=== PATIENT | female | born 1975 | race Caucasian/White ===

== ENCOUNTER 2017-11-20 08:23 | Emergency (ER) | payer SELFPAY ==
[2017-11-20 08:31] VITALS: BP 128/72
[2017-11-20] MEDS ORDERED: Acetaminophen TAB* 325 MG PO ONE (08:42)
--- NOTE | 2017-11-20 09:10 | UC ---
Karin Vilchis Rebecca, scribed for Nitza Gil MD on 11/20/17 at 0842 . Respiratory Complaint HPI - HPI Summary HPI Summary: Pt is a 42 y/o F who presents to [facility] c/o sore throat and nasal congestion for 3 days. 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 Throat pain is currently moderate, ranked 7/10 and characterized as feeling "raw." Sx aggravated by swallowing, alleviated by nothing, unchanged by OTC cold medication. Additionally c/o bilateral ear pain and R ear hearing loss. Denies fever, chills, myalgias. She has been having difficulty swallowing secondary to pain. 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 Father had a Dx of flu 3 days ago and she has spent significant time with him recently. Negative PMHx asthma, COPD and lung disease. - History of Current Complaint Chief Complaint: UCRespiratory Stated Complaint: CONGESTED,SORE THROAT Time Seen by Provider: 11/20/17 08:36 Hx Obtained From: Patient Hx Last Menstrual Period: 01/28/16 Onset/Duration: Lasting Days, Still Present Severity Currently: Severe Pain Intensity: 7 Pain Scale Used: 0-10 Numeric Aggravating Factors: Other - Swallowing Alleviating Factors: Nothing Associated Signs And Symptoms: Negative: Fever, Chills - Allergies/Home Medications Allergies/Adverse Reactions: Allergies Allergy/AdvReac Type Severity Reaction Status Date / Time niacin Allergy Hives Verified 11/20/17 08:32 PMH/Surg Hx/FS Hx/Imm Hx - Additional Past Medical History Additional PMH: PMHx: HTN NEGATIVE PMHx: Asthma, COPD, lung disease Previously Healthy: Yes - Surgical History Surgical History: Yes Surgery Procedure, Year, and Place: 1990 FOREHEAD, CYST EXCISED [facility] [place] MOLE REMOVED FROM LEFT BREAST [facility] [place]. 1993 BREAST REDUCTION [facility] [place]. 01/2012 RIGHT KNEE SCOPE [facility] [place] - Family History Known Family History: Positive: Hypertension, Diabetes Negative: Cardiac Disease - Social History Occupation: Employed Full-time Lives: With Family Alcohol Use: None Substance Use Type: None Smoking Status (MU): Never Smoked Tobacco - Immunization History Most Recent Influenza Vaccination: 08/2012 Most Recent Tetanus Shot: within 10 years Most Recent Pneumonia Vaccination: NONE Review of Systems Constitutional: Fatigue Skin: Negative Eyes: Negative ENT: Sore Throat, Ear Ache - Bilateral, Sinus Congestion, Other - R ear hearing loss Respiratory: Negative Cardiovascular: Negative Gastrointestinal: Negative Genitourinary: Negative Motor: Negative Neurovascular: Negative Musculoskeletal: Negative Neurological: Negative Psychological: Negative All Other Systems Reviewed And Are Negative: Yes - Comments Additional Review of Systems Comments: NEGATIVE: Fever, chills, myalgias Physical Exam Triage Information Reviewed: Yes Appearance: Well-Appearing, No Pain Distress, Well-Nourished Vital Signs: Initial Vital Signs Temp 98.4 F 11/20/17 08:26 Pulse 87 11/20/17 08:26 Resp 18 11/20/17 08:26 BP 128/72 11/20/17 08:26 Pulse Ox 98 11/20/17 08:26 Vital Signs Reviewed: Yes Eye Exam: Normal Eyes: Positive: Conjunctiva Clear ENT: Positive: Pharynx normal, Nasal congestion, TMs normal, Uvula midline Neck exam: Normal Neck: Positive: Supple, Nontender, No Lymphadenopathy Respiratory Exam: Normal Respiratory: Positive: Chest non-tender, Lungs clear, Normal breath sounds, No respiratory distress, No accessory muscle use Cardiovascular Exam: Normal Cardiovascular: Positive: RRR, No Murmur, Pulses Normal Abdominal Exam: Normal Abdomen Description: Positive: Nontender, No Organomegaly, Soft Bowel Sounds: Positive: Present Musculoskeletal Exam: Normal Neurological Exam: Normal Neurological: Positive: Alert Psychological Exam: Normal Skin Exam: Normal UC Diagnostic Evaluation - Laboratory O2 Sat by Pulse Oximetry: 98 Re-Evaluation - Re-Evaluation First Eval Re-Evaluation Time: 09:03 Comment: Discussed test results with the patient. Respiratory Course/Dx - Course Course Of Treatment: Patients medication reviewed this visit. Pt with sore throat, congestion, cough and myalgias progressive x 2 days. pt with + influenza. hydrate. motrin/apap. tamiflu. work note (pt OPTICAL WORKER). secretion precaution - Differential Dx/Diagnosis Provider Diagnoses: influenza Discharge - Sign-Out/Discharge Documenting (check all that apply): Discharge - Discharge Plan Condition: Stable Disposition: HOME Prescriptions: Fluticasone NASAL SPRAY 50MCG* [Flonase NASAL SPRAY 50MCG*] 2 spray BOTH NARES DAILY #1 btl Oseltamivir SUSP 75 MG dose* [Tamiflu SUSP 75 MG dose*] 75 mg PO BID #10 oral.syrin Patient Education Materials: Influenza (ED) Forms: *Work Release Referrals: Nae Mehta MD [Primary Care Provider] - Additional Instructions: - Stay well hydrated. Drink plenty of non-alcoholic, non-caffinated beverages. - Alternate ibuprofen (Advil, Motrin) 600mg and Tylenol every 3 hours for pain or fever. Take with food. Do NOT take for more than 4-5 days. -cold foods (popsicle, jello, apple sauce) may be soothing to your throat - okay to gargle and spit with warm salt water, 2-3 times a day - These infections are spread by secretions - do NOT share eating or drinking utensils - clean items you share with other people such as cell phones, computer mouse, TV remote, computer tablets, etc. After you have taken Tamiflu for 3 days, change your toothbrush and your pillowcase. - use nasal spray as prescribed - get plenty of restful sleep - humidify the air in the room where you sleep - boil water, run a hot steam shower, vaporizer, cups of water by heat register - okay to take over the counter decongestant and cough medication - contact your doctor, return here, or go to the emergency department with questions or concerns - Billing Disposition and Condition Condition: STABLE Disposition: HOME The documentation as recorded by the Karin perera Rebecca accurately reflects the service I personally performed and the decisions made by , Nitza Gil MD.
== END 2017-11-20 09:10 | disposition home or self-care (01) ==
LOC: UCEAST 08:23
DX: J11.1 Influenza due to unidentified influenza virus with other respiratory manifestations (principal); Z88.8 Allergy status to other drugs, medicaments and biological substances
CPT/HCPCS: 87502; 87651; 99212; A9270-GY; G0463

== ENCOUNTER 2018-08-08 11:28 | Emergency (ER) | payer OTHER ==
[2018-08-08 11:56] VITALS: BP 147/82
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
== END 2018-08-08 12:50 | disposition home or self-care (01) ==
LOC: UCEAST 11:28
DX: M25.552 Pain in left hip (principal); V89.2XXA Person injured in unspecified motor-vehicle accident, traffic, initial encounter; Y92.488 Other paved roadways as the place of occurrence of the external cause; Z96.642 Presence of left artificial hip joint; I10 Essential (primary) hypertension
CPT/HCPCS: 99211; G0463

== ENCOUNTER 2018-12-09 05:46 | Emergency (ER) | payer OTHER ==
--- NOTE | 2018-12-09 06:17 | ED ---
Respiratory - HPI Summary HPI Summary: Patient is a 43-year-old female who presents emergency department for ongoing cough and sinus pressure 2 weeks. Past medical history of hypertension, obesity, hyperlipidemia. Patient denies history of asthma, COPD, smoking. Patient denies shortness of breath but notices chest discomfort with deep inhalation and coughing only. Patient denies fever, chills, abdominal pain, vomiting, diarrhea. Symptoms are mild in severity. No current modifying factors. 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 1991 MOLE REMOVED FROM LEFT BREAST [facility] [place]. 1993 BREAST REDUCTION [facility] [place]. 01/2012 RIGHT KNEE SCOPE [facility] [place]. bilateral hip replacement Hx Anesthesia Reactions: Yes - 1993 N/V Infectious Disease History: No Infectious Disease History: Denies: Traveled Outside the [place] in Last 30 Days - Family History Known Family History: Positive: Hypertension, Diabetes Negative: Cardiac Disease - Social History Occupation: Unemployed Alcohol Use: None Substance Use Type: Reports: None Smoking Status (MU): Never Smoked Tobacco Review of Systems Constitutional: Negative Negative: Fever, Chills Eyes: Negative Positive: Nasal Discharge Cardiovascular: Negative Positive: Cough. Negative: Shortness Of Breath Gastrointestinal: Negative Negative: Abdominal Pain, Vomiting, Diarrhea Genitourinary: Negative Neurological: Negative All Other Systems Reviewed And Are Negative: Yes Physical Exam Triage Information Reviewed: Yes Vital Signs On Initial Exam: Initial Vitals Temp Pulse Resp BP Pulse Ox 98.3 F 64 16 155/88 100 12/09/18 05:48 12/09/18 05:48 12/09/18 05:48 12/09/18 05:48 12/09/18 05:48 Vital Signs Reviewed: Yes Appearance: Positive: Well-Appearing - Pt. sitting on side of bed in NAD. Skin: Positive: Warm, Dry Head/Face: Positive: Normal Head/Face Inspection Eyes: Positive: Normal, EOMI, DIAN ENT: Positive: Pharynx normal, TMs normal, Other - Pain on palpation over maxillary sinuses. Neck: Positive: Supple, Nontender Respiratory/Lung Sounds: Positive: Other - Diminished breath sounds in bases.. Negative: Unable to speak in full sentences Cardiovascular: Positive: Normal, RRR Neurological: Positive: Normal, CN Intact II-III Psychiatric: Positive: Affect/Mood Appropriate Diagnostics - Vital Signs Vital Signs Temp Pulse Resp BP Pulse Ox 12/09/18 05:48 98.3 F 64 16 155/88 100 - Laboratory Lab Statement: Any lab studies that have been ordered have been reviewed, and results considered in the medical decision making process. Disposition - Course Course Of Treatment: Pt. presenting with ongoing cough and sinus pressure. She is afebrile. BP elevated. CXR negative for acute findings per my read. Given ongoing sinus pain will treat with augmentin and flonase. Advised close f.u with PCP. NSAIDS for pain as directed. Return to ER if sxs change or worsen. Work excuse given. Pt. understands and agrees with plan. - Differential Dx - Cardiopulmonary Differential Diagnoses - Cardiopulmonary: Asthma, Influenza, Pleurisy, Sinusitis - Diagnoses Provider Diagnoses: Bronchitis, Sinusitis Discharge - Sign-Out/Discharge Documenting (check all that apply): Patient Departure Patient Received Moderate/Deep Sedation with Procedure: No - Discharge Plan Condition: Good Disposition: HOME Prescriptions: Amoxicillin/Clavulanate TAB* [Augmentin TAB 875*] 875 mg PO BID #20 tab Fluticasone NASAL SPRAY 50MCG* [Flonase NASAL SPRAY 50MCG*] 2 spray BOTH NARES DAILY #1 btl Patient Education Materials: Sinusitis (ED) Forms: *Work Release Referrals: Nae Mehta MD [Primary Care Provider] - Additional Instructions: Schedule a follow up appointment with PCP Take medication as directed NSAIDs for pain as directed Increase fluids and rest Return to ER if symptoms change or worsen - Billing Disposition and Condition Condition: GOOD Disposition: Home
[2018-12-09 07:25] VITALS: BP 150/119
== END 2018-12-09 07:22 | disposition home or self-care (01) ==
LOC: ED 05:46
DX: J40 Bronchitis, not specified as acute or chronic (principal); J32.9 Chronic sinusitis, unspecified; I10 Essential (primary) hypertension; R73.03 Prediabetes; Z88.8 Allergy status to other drugs, medicaments and biological substances; Z79.84 Long term (current) use of oral hypoglycemic drugs
CPT/HCPCS: 71046; 99282

== ENCOUNTER 2019-07-09 20:41 | Emergency (ER) | payer OTHER ==
--- OUTSIDE RECORDS SUMMARY | 2019-07-09 21:08 | XMS REPORT | Continuity of Care Document ---
:1975 External Reference #:[id number] Author Name Vianca Guerra N.P. 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 Onset: 08/28/2015 Hyperlipidemia Ankita Carter M.D., FACP Onset: 12/25/2010 Metabolic syndrome X Ankita Carter M.D., FACP Onset: 12/25/2010 Degenerative joint disease of pelvis Bladimir Calderon M.D. Onset: 02/27/2015 Prosthetic arthroplasty of the hip Bladimir Calderon M.D. Onset: 02/27/2015 Social History Type Date Description Comments Sex Unknown ETOH Use Denies alcohol use Tobacco Use Start: Unknown Patient has never smoked Smoking Status Reviewed: 06/14/19 Patient has never smoked Exercise Exercises regularly No real exercise Type/Frequency routine, very active Allergies, Adverse Reactions, Alerts Active Allergies Reaction Severity Comments Date Niaspan FLUSHED WITH HEART PALP Moderate 04/16/2010 Medications Active Medications SIG Qnty Indications Ordering Date Provider Metformin HCL Take 1 Tablet 30tabs E11.9 Vianca Guerra, 09/06/2018 500mg Tablets By Mouth AT N.P. Dinner Omeprazole take one 30caps K21.9 Vianca Guerra, 11/09/[address] capsule by N.P. mouth every day Zocor 1 tablet at 30tabs Vianca Guerra, 20mg Tablets bedtime N.P. Acetaminophen Extra 6-8 tablets po 90tabs Unknown Strength daily prn 500mg Tablets Lisinopril take one 30tabs Vianca Varn, 10mg Tablets tablet once N.P. daily Hydrochlorothiazide take one 30tabs Vianca Varn, 25mg Tablets tablet once N.P. daily Immunizations CPT Code Status Date Vaccine Lot # [id number] Given 09/28/2012 Fluvirin Im 3Yrs And Older [id number] Given 07/22/2010 Influenza Virus 3Yrs & Over [id number] Given 05/31/2008 Tdap - Tetanus/Diptheria/Acellular Pertussis 00996 Given 05/31/2008 Tdap - Tetanus/Diptheria/Acellular Pertussis [id number] Given 06/27/2007 Influenza Virus 3Yrs & Over 08324 Given 06/27/2007 Influenza Virus 3Yrs & Over Vital Signs Date Vital Result Comment 06/14/2019 1:13pm Height 66.5 inches 5'6.50" Weight 278.00 lb Heart Rate 76 /min BP Systolic 117 mmHg BP Diastolic 68 mmHg O2 % BldC Oximetry 96 % BMI (Body Mass Index) 44.2 kg/m2 09/06/2018 3:05pm Height 66.5 inches 5'6.50" Weight 290.00 lb with shoes Heart Rate 80 /min BP Systolic 110 mmHg BP Diastolic 76 mmHg O2 % BldC Oximetry 98 % BMI (Body Mass Index) 46.1 kg/m2 Results Test Date Facility Test Result H/L Range Note Comp Metabolic 06/09/2019 [facility] Sodium 136 mmol/L Normal 135-145 [address] [place] [address] [phone] Potassium 4.6 mmol/L Normal 3.5-5.0 Chloride 99 mmol/L Low 101-111 Co2 Carbon Dioxide 27 mmol/L Normal 22-32 Anion Gap 10 mmol/L Normal 2-11 Glucose 114 mg/dL High 70-100 Blood Urea Nitrogen 11 mg/dL Normal 6-24 Creatinine 0.64 mg/dL Normal 0.51-0.95 BUN/Creatinine Ratio 17.2 Normal 8-20 Calcium 9.8 mg/dL Normal 8.6-10.3 Total Protein 8.2 g/dL Normal 6.4-8.9 Albumin 4.4 g/dL Normal 3.2-5.2 Globulin 3.8 g/dL Normal 2-4 Albumin/Globulin Ratio 1.2 Normal 1-3 Total Bilirubin 0.40 mg/dL Normal 0.2-1.0 Alkaline Phosphatase 82 U/L Normal 34-104 Alt 18 U/L Normal 7-52 Ast 16 U/L Normal 13-39 Egfr Non- 100.3 >60 Egfr 121.4 >60 2 Lipid Profile 06/09/2019 [facility] Triglycerides 172 mg/dL 3 (Trig/Chol/HDL) [address] [place] [address] [phone] Cholesterol 180 mg/dL 4 HDL Cholesterol 45.3 mg/dL 5 LDL Cholesterol 100 mg/dL 6 Laboratory test 06/09/2019 [facility] Hemoglobin A1c 6.4 % High 4.0-5.[address] (Glyco HGB) [place] [address] [phone] 1 [id number] 2 Because ethnic data is not always readily available, this report includes an eGFR for both -Americans and non- Americans. The National Kidney Disease Education Program (NKDEP) does not endorse the use of the MDRD equation for patients that are not between the ages of 18 and 70, are , have extremes of body size, muscle mass, or nutritional status, or are non- or non-. According to the National Kidney Foundation, irrespective of diagnosis, the stage of the disease is based on the level of kidney function: Stage Description GFR(mL/min/1.73 m(2)) 1 Kidney damage with normal or decreased GFR 90 2 Kidney damage with mild decrease in GFR 60-89 3 Moderate decrease in GFR 30-59 4 Severe decrease in GFR 15-29 5 Kidney failure <15 (or dialysis) 3 Desirable: <150 Borderline High: 150-199 High: 200-499 Very High: >500 4 Desirable: <200 Borderline High: 200-239 High: >239 5 Low: <40 Desirable: 40-60 High: >60 6 Desirable: <100 Near Optimal: 100-129 Borderline High: 130-159 High: 160-189 Very High: >189 7 Therapeutic target for the treatment of diabetes mellitus patients is <7% HBA1C, and in selective patients <6.0%. Please refer to [employer] Association diabetic care guidelines for further information. Procedures Date Code Description Status 02/08/2009 33244823 Mammogram Completed Medical Devices Description No Information Available Encounters Description No Information Available Assessments Date Code Description Provider 06/14/2019 Z00.00 Encounter for general adult medical examination Vianca Guerra N.P. without abnormal findings 06/14/2019 Z12.31 Encounter for screening mammogram for malignant Vianca Guerra N.P. neoplasm of breast 06/14/2019 I10 Essential (primary) hypertension Vianca Guerra, N.P. 06/14/2019 E11.9 Type 2 diabetes mellitus without complications Vianca Guerra N.P. 06/14/2019 E78.00 Pure hypercholesterolemia, unspecified Vianca Guerra, N.P. 06/14/2019 K21.9 Gastro-esophageal reflux disease without Vianca Guerra, N.P. esophagitis Plan of Treatment Future Appointment(s):12/14/2019 11:00 am - Vianca Guerra N.P. at [facility] Internal Medicine - [facility]06/14/2019 - Vianca Guerra N.P.Z00.00 Encounter for general adult medical examination without abnormal findingsComments:For your routine health Please be sure to get a flu shot.maintenance: I would encourage you to starta regular exercise program. You need to be getting between 1,000 - 1,200 mg of Calcium in daily. If you take a Calcium supplement be sure it has Vitamin D in it to help absorption. You have received your Tetanus immunization today. Your arm may be sore for a few days. This is good for 10 years. It also protects you from getting Pertussis, (whooping cough). Please be sure to get a flu shot.Immunizations/Injections:Tdap - Tetanus/Diptheria/Acellular OspwuzudmI18.31 Encounter for screening mammogram for malignant neoplasm of breastComments:I have ordered your routine screening mammogram. The imaging department will give you your results at the time of your visit. I encourage you to do self exams. If you should notice any masses or thickening, please give the office a call.I10 Essential (primary) hypertensionComments:For your high blood pressure: Continue with your current medication. I would like you to monitor your blood pressure at home. If your readings at home are consistently higher than 140/90, please call the office.E11.9 Type 2 diabetes mellitus without complicationsComments:For your diabetes: Continue with your current management. Your recent Hgb A1C was 6.4. You are due for your annual eye exam in. Please have your specialist send me a report so I may incorporate this into your record. I have ordered a urine micro albumin. The office will contact you with your results.E78.00 Pure hypercholesterolemia, unspecifiedComments:For your high cholesterol: Continue your current management. Your recent labs to check your cholesterol looked good.K21.9 Gastro- esophageal reflux disease without esophagitisComments:For your esophageal reflux : Continue with your current management. I advise you to avoid food triggers. These include: Spicy, greasy, and acidic foods, along with coffee and alcohol. Functional Status Description No Information Available Mental Status Description No Information Available Referrals Description No Information Available
--- NOTE | 2019-07-09 21:41 | ED ---
Lower Extremity - HPI Summary HPI Summary: 43 yo female presents with LEFT calf pain. She tells me that she does a lot of work on her feet and over the last 3 days has noticed pain and swelling to her left calf. She is concerned for a blood clot. She denies specific injury. Has not taken anything OTC for her discomfort. No personal or fam hx of blood clots. No recent travel. Denies SOB, chest pain, numbness, tingling. She has a history of b/l hip replacements - History of Current Complaint Chief Complaint: EDExtremityLower Stated Complaint: LT LEG PAIN AND SWOLLEN PER PT Time Seen by Provider: 07/09/19 21:40 Hx Obtained From: Patient Hx Last Menstrual Period: 07/14/18 Severity Initially: Moderate Severity Currently: Moderate Pain Intensity: 8 Pain Scale Used: 0-10 Numeric - Allergies/Home Medications Allergies/Adverse Reactions: Allergies Allergy/AdvReac Type Severity Reaction Status Date / Time niacin Allergy Hives Verified 07/09/19 21:00 Home Medications: Home Medications Omeprazole 20 mg PO DAILY 07/09/19 [History Confirmed 07/09/19] PMH/Surg Hx/FS Hx/Imm Hx Endocrine/Hematology History: Reports: 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 1991 MOLE REMOVED FROM LEFT BREAST [facility] [place]. 1993 BREAST REDUCTION [facility] [place]. 01/2012 RIGHT KNEE SCOPE [facility] [place]. bilateral hip replacement Hx Anesthesia Reactions: Yes - 1993 N/V Infectious Disease History: No Infectious Disease History: Denies: Traveled Outside the [place] in Last 30 Days - Family History Known Family History: Positive: Hypertension, Diabetes Negative: Cardiac Disease - Social History Lives: With Family Alcohol Use: None Substance Use Type: Reports: None Smoking Status (MU): Never Smoked Tobacco Review of Systems Constitutional: Negative Cardiovascular: Negative Respiratory: Negative Gastrointestinal: Negative Genitourinary: Negative Musculoskeletal: Other - Left calf pain and swelling Skin: Negative Neurological: Negative Psychological: Normal All Other Systems Reviewed And Are Negative: No Physical Exam - Summary Physical Exam Summary: GENERAL: NAD. WDWN. No pain distress. SKIN: No rashes, sores, or open wounds. NECK: Supple. Nontender. No lymphadenopathy. CHEST: CTAB. No r/r/w. No accessory muscle use. Breathing comfortably and in no distress. CV: RRR. Pulses intact popliteal, PT, and DP. Cap refill <2seconds MSK: LEFT LOWER LEG: Mild edema and firmness to posterior 1/3 of calf that is mildly TTP. No palpable cord, warmth, or ecchymosis. FROM at left knee and ankle without pain. Negative дмитрий sign. NEURO: Alert. PSYCH: Age appropriate behavior. Triage Information Reviewed: Yes Vital Signs On Initial Exam: Initial Vitals Temp Pulse Resp BP Pulse Ox 98.5 F 71 15 180/85 98 07/09/19 20:59 07/09/19 20:59 07/09/19 20:59 07/09/19 20:59 07/09/19 20:59 Vital Signs Reviewed: Yes Procedures - Sedation Patient Received Moderate/Deep Sedation with Procedure: No Diagnostics - Vital Signs Vital Signs Temp Pulse Resp BP Pulse Ox 07/09/19 20:59 98.5 F 71 15 180/85 98 - Laboratory Lab Statement: Any lab studies that have been ordered have been reviewed, and results considered in the medical decision making process. - Ultrasound Left calf Ultrasound Interpretation Completed By: Radiologist Summary of Ultrasound Findings: IMPRESSION: No DVT of the left lower extremity. Lower Extremity Course/Dx - Course Course Of Treatment: US negative. Suspect muscle strain or tendinitis due to being on her feet often at work. Recommend supportive care with rest, ice, and tylenol as directed for discomfort. F/u with PCP if symptoms persist. - Diagnoses Provider Diagnoses: Calf pain Discharge ED - Sign-Out/Discharge Documenting (check all that apply): Patient Departure - Discharge Plan Condition: Stable Disposition: HOME Patient Education Materials: Muscle Strain (ED) Forms: *Work Release Referrals: Nae Mehta MD [Primary Care Provider] - 3 Days Additional Instructions: If you develop a fever, shortness of breath, chest pain, new or worsening symptoms - please call your PCP or go to the ED immediately. Your blood pressure was high at todays visit. Please see your primary provider within 4 weeks for recheck and re-evaluation. Your ultrasound today did not show a blood clot Please rest, elevate, and apply ice to the area to decrease pain I recommend that you be rechecked by your primary doctor within 1 week - Billing Disposition and Condition Condition: STABLE Disposition: Home
[2019-07-10 00:04] VITALS: BP 157/80
== END 2019-07-10 00:04 | disposition home or self-care (01) ==
LOC: ED 20:41
DX: M79.662 Pain in left lower leg (principal); I10 Essential (primary) hypertension; R73.03 Prediabetes; Z96.643 Presence of artificial hip joint, bilateral; Z79.899 Other long term (current) drug therapy; R60.0 Localized edema
CPT/HCPCS: 99283

== ENCOUNTER 2019-10-20 07:08 | Emergency (ER) | payer OTHER ==
[2019-10-20 07:28] VITALS: BP 163/75
--- NOTE | 2019-10-20 07:40 | UC ---
Minor Trauma HPI - HPI Summary HPI Summary: The patient is a 44-year-old female who slipped on ice in her driveway this a.m. She is complaining of left hip pain as well as left lower leg pain. She is able to ambulate. About 5 years ago she had a left total hip replacement. She denies any head injury. She denies any neck pain from fall. - History of Current Complaint Chief Complaint: UCLowerExtremity Stated Complaint: FELL LEG INJURU Time Seen by Provider: 10/20/19 07:26 Hx Obtained From: Patient Hx Last Menstrual Period: Onset/Duration: Sudden Onset, Lasting Hours Onset Of Pain: Immediate Severity Initially: Moderate Severity Currently: Moderate Pain Intensity: 7 - declines analgesic Pain Scale Used: 0-10 Numeric Mechanism Of Injury: Fall From A Standing Position Aggravating Factor(s): Ambulation, Weight Bearing Alleviating Factor(s): Rest Body - Head: 1 - tedner fibula 2 - tender - Allergies/Home Medications Allergies/Adverse Reactions: Allergies Allergy/AdvReac Type Severity Reaction Status Date / Time niacin Allergy Hives Verified 10/20/19 07:23 Home Medications: Home Medications Hydrochlorothiazide TAB* 25 mg PO QAM 05/17/13 [History Confirmed 10/20/19] Lisinopril TAB* [Prinivil TAB*] 10 mg PO DAILY 05/17/13 [History Confirmed 10/20] Simvastatin TAB(NF) [Zocor(NF)] 20 mg PO 1700 05/17/13 [History Confirmed ] Fluticasone NASAL SPRAY 50MCG* [Flonase NASAL SPRAY 50MCG*] 2 spray BOTH NARES DAILY #1 btl 12/09/18 [Rx Confirmed 10/20/19] Metformin HCl 500 mg PO DAILY 12/09/18 [History Confirmed 10/20/19] Omeprazole 20 mg PO DAILY 07/09/19 [History Confirmed 10/20/19] PMH/Surg Hx/FS Hx/Imm Hx Previously Healthy: Yes Endocrine History: Diabetes Cardiovascular History: Hypertension - Surgical History Surgical History: Yes Surgery Procedure, Year, and Place: 1990 FOREHEAD, CYST EXCISED [facility]. 1991 MOLE REMOVED FROM LEFT BREAST [facility]. 1993 BREAST REDUCTION [facility]. [place] [facility] [place] - Family History Known Family History: Positive: Hypertension, Diabetes Negative: Cardiac Disease - Social History Alcohol Use: Rare Substance Use Type: None Smoking Status (MU): Never Smoked Tobacco - Immunization History Most Recent Influenza Vaccination: 08/2012 Most Recent Tetanus Shot: within 10 years Most Recent Pneumonia Vaccination: NONE Review of Systems All Other Systems Reviewed And Are Negative: Yes Constitutional: Positive: Negative Skin: Positive: Negative Eyes: Positive: Negative ENT: Positive: Negative Respiratory: Positive: Negative Cardiovascular: Positive: Negative Gastrointestinal: Positive: Negative Genitourinary: Positive: Negative Motor: Positive: Negative Neurovascular: Positive: Negative Musculoskeletal: Positive: Arthralgia - see HPI Neurological/Mental Status: Positive: Negative Psychological: Positive: Negative Physical Exam Triage Information Reviewed: Yes Appearance: No Pain Distress, Well-Nourished Vital Signs: Initial Vital Signs Temp 98.1 F 10/20/19 07:17 Pulse 64 10/20/19 07:17 Resp 18 10/20/19 07:17 BP 163/75 10/20/19 07:17 Pulse Ox 100 10/20/19 07:17 Vital Signs Reviewed: Yes Eyes: Positive: Conjunctiva Clear ENT: Positive: Hearing grossly normal, TMs normal. Negative: Nasal congestion, Nasal drainage Neck: Positive: Supple, Nontender, No Lymphadenopathy Respiratory: Positive: Lungs clear, Normal breath sounds, No respiratory distress, No accessory muscle use Cardiovascular: Positive: RRR, No Murmur Musculoskeletal: Positive: ROM Intact, No Edema Neurological: Positive: Alert Psychological Exam: Normal Skin Exam: Normal Diagnostics - Radiology No standard instances Radiology Interpretation Completed By: Radiologist Summary of Radiographic Findings: no fx left hip/pelvis tib/fib Minor Trauma Course/Dx - Differential Dx/Diagnosis Provider Diagnosis: Fall, Contusion of left hip, Contusion of left lower leg Discharge ED - Sign-Out/Discharge Documenting (check all that apply): Patient Departure All imaging exams completed and their final reports reviewed: Yes - Discharge Plan Condition: Stable Disposition: HOME Patient Education Materials: Contusion in Adults (ED) Forms: *Work Release Referrals: Vianca Guerra NP [Primary Care Provider] - 1 Week (if not better) Additional Instructions: rest ice tylenol or advil for pain - Billing Disposition and Condition Condition: STABLE Disposition: Home
== END 2019-10-20 08:28 | disposition home or self-care (01) ==
LOC: UCEAST 07:08
DX: S70.02XA Contusion of left hip, initial encounter (principal); S80.12XA Contusion of left lower leg, initial encounter; E11.9 Type 2 diabetes mellitus without complications; I10 Essential (primary) hypertension; Z96.642 Presence of left artificial hip joint; Z88.8 Allergy status to other drugs, medicaments and biological substances; Z79.899 Other long term (current) drug therapy; Z79.84 Long term (current) use of oral hypoglycemic drugs; W00.0XXA Fall on same level due to ice and snow, initial encounter; Y93.29 Activity, other involving ice and snow; Y92.014 Private driveway to single-family (private) house as the place of occurrence of the external cause
CPT/HCPCS: 99211; G0463